=== PATIENT | male | born 1965 | race Asian ===

== ENCOUNTER 2021-09-28 11:46 | Inpatient (IN) | payer BC, OTHER ==
[~2021-09-28] VITALS: Ht 172.7 cm; Wt 76.3 kg
[~2021-09-28 11:46] MED LIST: ASPI-556 PO; ATOR20TA65 PO; CARV3 PO; GLIP5TAB12 PO; LISI10TA24 PO
[2021-09-28] MEDS ORDERED: FURO40 PO (12:01)
[2021-09-28 12:28] LABS: CALCIUM, TOTAL 9.2 mg/dL (8.8-10.5); CREATININE 1.68 mg/dL (0.60-1.30); POTASSIUM 4.5 mmol/L (3.5-5.1)
[2021-09-28 12:29] LABS: BASOPHILS % (AUTO) 0.5 % (0.0-2.0); EOSINOPHILS % (AUTO) 2.1 % (1.0-6.0); LYMPHOCYTES # (AUTO) 0.7 K/uL (1.0-4.8); LYMPHOCYTES % (AUTO) 11.7 % (22.0-44.0); MEAN CORPUSCULAR HGB CONC 33.4 G/dL (31.0-37.0); MEAN CORPUSCULAR VOLUME 93 fL (80-100); MONOCYTES # (AUTO) 0.4 K/uL (0.1-1.0); MONOCYTES % (AUTO) 6.9 % (2.0-9.0); NEUTROPHILS # (AUTO) 4.8 K/uL (1.8-7.7); NEUTROPHILS % (AUTO) 78.8 % (40.0-70.0); PLATELET COUNT (AUTO) 196 K/uL (150-450); RED BLOOD CELL COUNT(AUTO) 6.12 MIL/uL (4.50-5.90); RED CELL DISTRIBUTION WIDTH 15.7 % (11.5-14.5)
[2021-09-28] MEDS ORDERED: FUROSEMIDE 40 MG/4 ML VIAL IVP ONE (12:30)
[2021-09-28 12:31] LABS: HEMATOCRIT 56.9 % (41-53)
[2021-09-28 12:52] LABS: BILIRUBIN,TOTAL 1.1 mg/dL (0.1-1.0); TOTAL PROTEIN, SERUM 7.2 g/dL (6.4-8.2)
[2021-09-28 15:12] LABS: APPEARANCE,URINE CLEAR (CLEAR); BILIRUBIN,URINE NEGATIVE (NEGATIVE); GLUCOSE, URINE (UA) NEGATIVE (NEGATIVE); KETONES,URINE NEGATIVE (NEGATIVE); LEUKOCYTE ESTERASE ,URINE NEGATIVE (NEGATIVE); NITRATE,URINE NEGATIVE (NEGATIVE); OCCULT BLOOD,URINE NEGATIVE (NEGATIVE); PH,URINE 6.5 (5.0-8.0); PROTEIN,URINE 30-70 mg/dL (NEGATIVE); SPECIFIC GRAVITIY, URINE 1.005 (1.003-1.030); UROBILINOGEN,URINE <=1.0 mg/dL (<=1.0)
[2021-09-28] MEDS ORDERED: ONDANSETRON HCL 4 MG/2 ML VIAL IVP PRN (15:15)
[2021-09-28] MEDS ORDERED: ACETAMINOPHEN 325 MG TABLET PO PRN (15:15)
[2021-09-28] MEDS ORDERED: ZOLPIDEM TARTRATE 5 MG TABLET PO PRN (15:15)
[2021-09-28] MEDS ORDERED: BISACODYL 10 MG RECTAL RECTAL SUPPOSITORY PR PRN (15:15)
[2021-09-28] MEDS ORDERED: MORPHINE SULFATE 2 MG/ML SYRINGE IVP PRN (15:15)
[2021-09-28] MEDS ORDERED: HYDROCODONE/ACETAMINOPHEN 5-325 MG TABLET PO PRN (15:15)
[2021-09-28] MEDS ORDERED: MAGNESIUM HYDROXIDE SUSPENSION 30 ML UDCUP PO PRN (15:15)
[2021-09-28] MEDS ORDERED: ASPI-1444 PO (15:21)
[2021-09-28 16:20] LABS: COVID AG,FIA SOURCE NASAL SWAB
[2021-09-28] MEDS: HEPARIN SODIUM,PORCINE 5,000 UNITS/ML VIAL SQ SCH (16:29)
[2021-09-28 20:06] VITALS: BP 129/80
[2021-09-28] MEDS: DOCUSATE SODIUM 100 MG CAPSULE PO SCH (20:55)
[2021-09-28] MEDS: ATORVASTATIN CALCIUM 20 MG TABLET PO SCH (20:55)
[2021-09-28] MEDS ORDERED: FUROSEMIDE 20 MG/2 ML VIAL IVP SCH (21:00)
[2021-09-29 04:26] VITALS: BP 142/89
[2021-09-29] MEDS: GlipiZIDE 5 MG TABLET PO SCH (06:18)
[2021-09-29 06:30] LABS: BASOPHILS % (AUTO) 0.6 % (0.0-2.0); EOSINOPHILS % (AUTO) 2.2 % (1.0-6.0); HEMATOCRIT 51.6 % (41-53); HEMOGLOBIN 17.1 g/dL (13.5-17.5); LYMPHOCYTES % (AUTO) 16.1 % (22.0-44.0); MEAN CORPUSCULAR HEMOGLOBIN 30.7 pg (26.0-34.0); MEAN CORPUSCULAR HGB CONC 33.3 G/dL (31.0-37.0); MEAN CORPUSCULAR VOLUME 92 fL (80-100); MONOCYTES # (AUTO) 0.4 K/uL (0.1-1.0); MONOCYTES % (AUTO) 7.5 % (2.0-9.0); NEUTROPHILS # (AUTO) 4.4 K/uL (1.8-7.7); NEUTROPHILS % (AUTO) 73.6 % (40.0-70.0); PLATELET COUNT (AUTO) 164 K/uL (150-450); RED BLOOD CELL COUNT(AUTO) 5.59 MIL/uL (4.50-5.90); RED CELL DISTRIBUTION WIDTH 15.3 % (11.5-14.5)
[2021-09-29 06:40] LABS: CREATININE 1.39 mg/dL (0.60-1.30); POTASSIUM 3.9 mmol/L (3.5-5.1)
[2021-09-29 07:45] VITALS: BP 139/98
[2021-09-29] MEDS: METOPROLOL SUCCINATE 25 MG ER TABLET PO SCH (08:27)
[2021-09-29] MEDS: PANTOPRAZOLE SODIUM 40 MG DR TABLET PO SCH (08:27)
[2021-09-29] MEDS: ASPIRIN 81 MG DR TABLET PO SCH (08:27)
[2021-09-29] MEDS: HEPARIN SODIUM,PORCINE 5,000 UNITS/ML VIAL SQ SCH ×3 (08:28→16:46)
[2021-09-29] MEDS: FUROSEMIDE 20 MG/2 ML VIAL IVP SCH ×2 (08:29→21:45)
[2021-09-29] MEDS ORDERED: ASPIRIN 81 MG DR TABLET PO SCH (09:00)
[2021-09-29 09:07] LABS: MAGNESIUM 1.9 mg/dL (1.80-2.40)
[2021-09-29] MEDS ORDERED: POTASSIUM CHLORIDE 10% 40 MEQ/30 ML LIQUID UDCUP PO ONE (09:30)
[2021-09-29 11:21] VITALS: BP 134/92
[2021-09-29] MEDS: DOCUSATE SODIUM 100 MG CAPSULE PO SCH ×2 (11:21→21:00)
[2021-09-29 16:22] VITALS: BP 128/80
[2021-09-29 18:03] LABS: GLUCOMETER DEV NAME(LOC) 5N.1C; GLUCOSE,POINT OF CARE 120 MG/DL (70-110)
[2021-09-29 18:03] LABS: GLUCOMETER DEV NAME(LOC) 5S.2B; GLUCOSE,POINT OF CARE 145 MG/DL (70-110)
[2021-09-29 20:39] VITALS: BP 113/87
[2021-09-29] MEDS: ZOLPIDEM TARTRATE 5 MG TABLET PO PRN (21:39)
[2021-09-29] MEDS: SACUBITRIL/VALSARTAN 24-26 MG TABLET PO SCH (21:45)
[2021-09-29] MEDS: ATORVASTATIN CALCIUM 20 MG TABLET PO SCH (21:45)
[2021-09-30 05:19] VITALS: BP 123/91
[2021-09-30] MEDS: GlipiZIDE 5 MG TABLET PO SCH (06:27)
[2021-09-30 06:30] LABS: BASOPHILS % (AUTO) 0.6 % (0.0-2.0); EOSINOPHILS % (AUTO) 2.6 % (1.0-6.0); HEMATOCRIT 53.7 % (41-53); HEMOGLOBIN 18.1 g/dL (13.5-17.5); LYMPHOCYTES # (AUTO) 1.2 K/uL (1.0-4.8); LYMPHOCYTES % (AUTO) 20.9 % (22.0-44.0); MEAN CORPUSCULAR HEMOGLOBIN 31.4 pg (26.0-34.0); MEAN CORPUSCULAR HGB CONC 33.7 G/dL (31.0-37.0); MEAN CORPUSCULAR VOLUME 93 fL (80-100); MONOCYTES # (AUTO) 0.4 K/uL (0.1-1.0); MONOCYTES % (AUTO) 6.4 % (2.0-9.0); NEUTROPHILS # (AUTO) 3.9 K/uL (1.8-7.7); NEUTROPHILS % (AUTO) 69.5 % (40.0-70.0); PLATELET COUNT (AUTO) 172 K/uL (150-450); RED BLOOD CELL COUNT(AUTO) 5.77 MIL/uL (4.50-5.90); RED CELL DISTRIBUTION WIDTH 15.7 % (11.5-14.5)
[2021-09-30 06:49] LABS: CALCIUM, TOTAL 9.2 mg/dL (8.8-10.5); CREATININE 1.34 mg/dL (0.60-1.30); POTASSIUM 4.6 mmol/L (3.5-5.1)
[2021-09-30 08:00] VITALS: BP 108/84
[2021-09-30 08:32] LABS: GLUCOMETER DEV NAME(LOC) 5S.1B; GLUCOSE,POINT OF CARE 112 MG/DL (70-110)
[2021-09-30] MEDS: FUROSEMIDE 20 MG/2 ML VIAL IVP SCH ×2 (09:17→20:48)
[2021-09-30] MEDS: DOCUSATE SODIUM 100 MG CAPSULE PO SCH ×2 (09:18→20:48)
[2021-09-30] MEDS: HEPARIN SODIUM,PORCINE 5,000 UNITS/ML VIAL SQ SCH ×4 (09:18→23:14)
[2021-09-30] MEDS: ASPIRIN 81 MG DR TABLET PO SCH (09:18)
[2021-09-30] MEDS: PANTOPRAZOLE SODIUM 40 MG DR TABLET PO SCH (09:18)
[2021-09-30] MEDS: METOPROLOL SUCCINATE 25 MG ER TABLET PO SCH (09:20)
[2021-09-30 11:52] VITALS: BP 120/88
[2021-09-30] MEDS: SACUBITRIL/VALSARTAN 24-26 MG TABLET PO SCH ×2 (12:00→20:49)
[2021-09-30 12:16] LABS: GLUCOMETER DEV NAME(LOC) 5N.1C; GLUCOSE,POINT OF CARE 94 MG/DL (70-110)
[2021-09-30 12:20] LABS: MAGNESIUM 1.9 mg/dL (1.80-2.40); PHOSPHORUS 4.7 mg/dL (2.5-4.9)
[2021-09-30 17:12] VITALS: BP 121/72
[2021-09-30 19:11] LABS: GLUCOMETER DEV NAME(LOC) 5S.1B; GLUCOSE,POINT OF CARE 124 MG/DL (70-110)
[2021-09-30 20:18] VITALS: BP 126/84
[2021-09-30] MEDS: ATORVASTATIN CALCIUM 20 MG TABLET PO SCH (20:49)
[2021-09-30] MEDS: ZOLPIDEM TARTRATE 5 MG TABLET PO PRN (23:14)
[2021-10-01 00:16] VITALS: BP 118/89
[2021-10-01 05:07] VITALS: BP 105/72
[2021-10-01] MEDS: GlipiZIDE 5 MG TABLET PO SCH (06:16)
[2021-10-01 06:59] LABS: BASOPHILS % (AUTO) 4.7 % (0.0-2.0); EOSINOPHILS % (AUTO) 1.5 % (1.0-6.0); HEMATOCRIT 50.5 % (41-53); HEMOGLOBIN 16.8 g/dL (13.5-17.5); LYMPHOCYTES # (AUTO) 0.7 K/uL (1.0-4.8); LYMPHOCYTES % (AUTO) 12.1 % (22.0-44.0); MEAN CORPUSCULAR HEMOGLOBIN 30.8 pg (26.0-34.0); MEAN CORPUSCULAR HGB CONC 33.3 G/dL (31.0-37.0); MEAN CORPUSCULAR VOLUME 93 fL (80-100); MONOCYTES # (AUTO) 0.3 K/uL (0.1-1.0); MONOCYTES % (AUTO) 6.4 % (2.0-9.0); NEUTROPHILS # (AUTO) 4.1 K/uL (1.8-7.7); NEUTROPHILS % (AUTO) 75.3 % (40.0-70.0); PLATELET COUNT (AUTO) 157 K/uL (150-450); RED BLOOD CELL COUNT(AUTO) 5.45 MIL/uL (4.50-5.90); RED CELL DISTRIBUTION WIDTH 15.7 % (11.5-14.5)
[2021-10-01 07:07] LABS: CREATININE 1.32 mg/dL (0.60-1.30); POTASSIUM 3.9 mmol/L (3.5-5.1)
[2021-10-01 07:27] VITALS: BP 127/78
[2021-10-01] MEDS: ASPIRIN 81 MG DR TABLET PO SCH (08:50)
[2021-10-01] MEDS: SACUBITRIL/VALSARTAN 24-26 MG TABLET PO SCH ×2 (08:50→20:25)
[2021-10-01] MEDS: METOPROLOL SUCCINATE 25 MG ER TABLET PO SCH (08:50)
[2021-10-01] MEDS: PANTOPRAZOLE SODIUM 40 MG DR TABLET PO SCH (08:50)
[2021-10-01] MEDS: FUROSEMIDE 20 MG/2 ML VIAL IVP SCH ×2 (08:51→20:25)
[2021-10-01] MEDS: HEPARIN SODIUM,PORCINE 5,000 UNITS/ML VIAL SQ SCH ×3 (08:51→23:27)
[2021-10-01 11:30] VITALS: BP 111/78
[2021-10-01 11:53] LABS: PHOSPHORUS 4.5 mg/dL (2.5-4.9)
[2021-10-01 12:06] LABS: GLUCOMETER DEV NAME(LOC) 5N.1C; GLUCOSE,POINT OF CARE 108 MG/DL (70-110)
[2021-10-01] MEDS: DOCUSATE SODIUM 100 MG CAPSULE PO SCH ×2 (12:06→20:25)
[2021-10-01] MEDS: LEVOFLOXACIN 750 MG TABLET PO SCH (12:07)
[2021-10-01 12:16] LABS: GLUCOMETER DEV NAME(LOC) 5N.3; GLUCOSE,POINT OF CARE 214 MG/DL (70-110)
[2021-10-01 12:21] LABS: GLUCOMETER DEV NAME(LOC) 5N.3; GLUCOSE,POINT OF CARE 92 MG/DL (70-110)
[2021-10-01 14:58] VITALS: BP 107/75
[2021-10-01 20:11] VITALS: BP 109/81
[2021-10-01] MEDS: ATORVASTATIN CALCIUM 20 MG TABLET PO SCH (20:25)
[2021-10-01] MEDS: ZOLPIDEM TARTRATE 5 MG TABLET PO PRN (23:27)
[2021-10-02 00:02] VITALS: BP 121/94
[2021-10-02 05:18] VITALS: BP 122/89
[2021-10-02 06:17] LABS: BASOPHILS % (AUTO) 0.7 % (0.0-2.0); EOSINOPHILS % (AUTO) 2.3 % (1.0-6.0); HEMATOCRIT 49.8 % (41-53); HEMOGLOBIN 16.8 g/dL (13.5-17.5); LYMPHOCYTES # (AUTO) 0.9 K/uL (1.0-4.8); LYMPHOCYTES % (AUTO) 17.9 % (22.0-44.0); MEAN CORPUSCULAR HEMOGLOBIN 31.2 pg (26.0-34.0); MEAN CORPUSCULAR HGB CONC 33.8 G/dL (31.0-37.0); MEAN CORPUSCULAR VOLUME 92 fL (80-100); MONOCYTES # (AUTO) 0.4 K/uL (0.1-1.0); MONOCYTES % (AUTO) 8.5 % (2.0-9.0); NEUTROPHILS # (AUTO) 3.7 K/uL (1.8-7.7); NEUTROPHILS % (AUTO) 70.6 % (40.0-70.0); PLATELET COUNT (AUTO) 152 K/uL (150-450); RED BLOOD CELL COUNT(AUTO) 5.39 MIL/uL (4.50-5.90); RED CELL DISTRIBUTION WIDTH 15.5 % (11.5-14.5)
[2021-10-02 06:21] LABS: CALCIUM, TOTAL 8.8 mg/dL (8.8-10.5); CREATININE 1.5 mg/dL (0.60-1.30); POTASSIUM 4.1 mmol/L (3.5-5.1)
[2021-10-02] MEDS: GlipiZIDE 5 MG TABLET PO SCH (06:30)
[2021-10-02 07:41] VITALS: BP 115/66
[2021-10-02] MEDS: HEPARIN SODIUM,PORCINE 5,000 UNITS/ML VIAL SQ SCH (08:40)
[2021-10-02] MEDS: FUROSEMIDE 20 MG/2 ML VIAL IVP SCH (08:40)
[2021-10-02] MEDS: LEVOFLOXACIN 750 MG TABLET PO SCH (08:41)
[2021-10-02] MEDS: SACUBITRIL/VALSARTAN 24-26 MG TABLET PO SCH (08:41)
[2021-10-02] MEDS: ASPIRIN 81 MG DR TABLET PO SCH (08:42)
[2021-10-02] MEDS: METOPROLOL SUCCINATE 25 MG ER TABLET PO SCH (08:42)
[2021-10-02] MEDS: PANTOPRAZOLE SODIUM 40 MG DR TABLET PO SCH (08:42)
[2021-10-02] MEDS: DOCUSATE SODIUM 100 MG CAPSULE PO SCH (08:44)
[2021-10-02] MEDS ORDERED: ZOLP-280 PO (11:11)
[2021-10-02] MEDS ORDERED: SACU1TAB PO (11:11)
[2021-10-02] MEDS ORDERED: LEVO750T68 PO (11:11)
[2021-10-02] MEDS ORDERED: ASPI-1444 PO (11:11)
[2021-10-02] MEDS ORDERED: GLIP5TAB11 PO (11:11)
[2021-10-02] MEDS ORDERED: FURO40 PO (11:11)
[2021-10-02] MEDS ORDERED: ATOR20TA65 PO (11:11)
[2021-10-02] MEDS ORDERED: METO25XL PO (11:11)
[2021-10-02 11:36] VITALS: BP 127/76
[2021-10-02 12:06] LABS: GLUCOMETER DEV NAME(LOC) 5S.1B; GLUCOSE,POINT OF CARE 63 MG/DL (70-110)
[2021-10-02 12:06] LABS: GLUCOMETER DEV NAME(LOC) 5S.1B; GLUCOSE,POINT OF CARE 121 MG/DL (70-110)
[2021-10-02 12:06] LABS: GLUCOMETER DEV NAME(LOC) 5S.1B; GLUCOSE,POINT OF CARE 99 MG/DL (70-110)
[2021-10-02 12:47] LABS: GLUCOMETER DEV NAME(LOC) 5N.3; GLUCOSE,POINT OF CARE 213 MG/DL (70-110)
== END 2021-10-02 12:10 | disposition home or self-care (01) | DRG 291 ==
LOC: EMS 11:46 → 5S 15:17
PROVIDERS: ADMIT Internal Medicine; ATTEND Internal Medicine
DX: I13.0 Hypertensive heart and chronic kidney disease with heart failure and stage 1 through stage 4 chronic kidney disease, or unspecified chronic kidney disease (principal); I50.23 Acute on chronic systolic (congestive) heart failure; N17.9 Acute kidney failure, unspecified; I47.2 Ventricular tachycardia; E11.22 Type 2 diabetes mellitus with diabetic chronic kidney disease; N18.9 Chronic kidney disease, unspecified; Z20.822 Contact with and (suspected) exposure to COVID-19; E78.00 Pure hypercholesterolemia, unspecified; E78.5 Hyperlipidemia, unspecified; I25.2 Old myocardial infarction; Z86.73 Personal history of transient ischemic attack (TIA), and cerebral infarction without residual deficits; Z79.82 Long term (current) use of aspirin; Z82.3 Family history of stroke; Z63.4 Disappearance and death of family member; Z79.84 Long term (current) use of oral hypoglycemic drugs; Z79.899 Other long term (current) drug therapy
CPT/HCPCS: 71045; 80048; 80053; 81003; 82550; 82962; 83735; 83880; 84100; 84484; 85025; 93005; 93306; 99285; G0378; J1644; J1940; Q9967; 36415-L1; 36415-TC